=== PATIENT | female | born 1980 | race Caucasian/White ===

== ENCOUNTER 2017-08-28 07:23 | Emergency (ER) | payer MEDICAID ==
[~2017-08-28] VITALS: Ht 167.6 cm; Wt 76.2 kg
[2017-08-28] MEDS ORDERED: ONDANSETRON ODT 4 MG ONE (08:17)
[2017-08-28] MEDS ORDERED: KETOROLAC 30 MG/1 ML ONE (08:18)
[2017-08-28] MEDS ORDERED: ACETAMINOPHEN 500 MG TABLET ONE (08:18)
[2017-08-28 08:21] LABS: RAPID INFLUENZA A Negative (Negative); RAPID INFLUENZA B Negative (Negative)
[2017-08-28 08:30] LABS: ALBUMIN 3.5 g/dL (3.4-5.0); ANION GAP 5 mmol/L (5-15); CHLORIDE 110 mmol/L (98-107); CREATININE 0.76 mg/dL (0.55-1.02)
[2017-08-28 08:51] LABS: BASOPHILS % (AUTO) 0 % (0-1); EOSINOPHILS # (AUTO) 0.02 x10^3/uL (0-0.4); EOSINOPHILS % (AUTO) 0 % (1-7); LYMPHOCYTES # (AUTO) 0.51 x10^3/uL (1-3.4); LYMPHOCYTES % (AUTO) 5 % (22-44); MD NO; MEAN CORPUSCULAR HEMOGLOBIN 32.1 pg (27.0-34.8); MEAN CORPUSCULAR HGB CONC 33.9 g/dL (32.4-35.8); MEAN CORPUSCULAR VOLUME 94.7 fL (80-100); MEAN PLATELET VOLUME 9.1 fL (7.4-10.4); MONOCYTES # (AUTO) 0.72 x10^3/uL (0.2-0.8); MONOCYTES % (AUTO) 7 % (2-9); NEUTROPHILS # (AUTO) 8.64 x10^3/uL (1.8-6.8); NEUTROPHILS % (AUTO) 87 % (42-75); PLATELET COUNT 178 x10^3/uL (130-400); RED BLOOD COUNT 3.83 x10^6/uL (3.82-5.3); RED CELL DISTRIBUTION WIDTH 12.7 % (9.6-15.2)
[2017-08-28 08:53] LABS: MICROSCOPIC INDICATED
[2017-08-28] MEDS ORDERED: ACETAMINOPHEN 500 MG TABLET PO ONE (09:00)
[2017-08-28] MEDS ORDERED: ONDANSETRON ODT 4 MG PO ONE (09:00)
[2017-08-28] MEDS ORDERED: KETOROLAC 60 MG/2 ML IM ONE (09:00)
[2017-08-28 09:19] LABS: CULTURE INDICATED? YES
[2017-08-28 09:45] VITALS: BP 97/58
== END 2017-08-28 09:47 | disposition home or self-care (01) ==
LOC: ED 07:57
DX: N30.00 Acute cystitis without hematuria (principal); M79.1 Myalgia; R11.0 Nausea; F17.210 Nicotine dependence, cigarettes, uncomplicated
CPT/HCPCS: 36415; 71046; 80048; 81001; 82040; 83605; 84703; 85025; 87077; 87086; 87186; 87400; 96372; 99285; J1885; Q0162